=== PATIENT | female | born 1965 | race Caucasian/White ===

== ENCOUNTER 2020-04-16 10:52 | Outpatient (CLI) | payer OTHER, SELFPAY ==
--- NOTE | 2020-04-16 10:57 | MM_ITS ---
WS: [id number] SCREENING DIGITAL MAMMOGRAM WITH CAD HISTORY: SCREENING COMPARISON: 01/18/2017 and 10/06/2014 Bilateral CC and MLO views submitted. Computer aided detection analyzed. Breast composition: There are scattered areas of fibroglandular density. No suspicious masses, microc alcifications or architectural distortion. MM/[place] [id number] IMPRESSION: BI-RADS: 1-Negative FOLLOW UP: 1 Year Follow-up
== END 2020-04-16 10:53 | disposition home or self-care (01) ==
LOC: RADSHAW 10:55
PROVIDERS: PCP Family Medicine; Visit Provider Family Medicine
DX: Z12.31 Encounter for screening mammogram for malignant neoplasm of breast (principal)
CPT/HCPCS: 77067

== ENCOUNTER → 2020-05-06 14:36 | Outpatient (BNVA) | payer OTHER, SELFPAY | PROVIDERS: PCP Family Medicine; Visit Provider Surgery | DX: Z20.828 Contact with and (suspected) exposure to other viral communicable diseases (principal); Z12.11 Encounter for screening for malignant neoplasm of colon | CPT/HCPCS: 87635 ==

== ENCOUNTER 2020-05-12 08:13 | Day surgery (SDC) | payer OTHER, SELFPAY ==
[2020-05-08 13:48] VITALS: BMI 44.2
[2020-05-12 08:40] VITALS: BP 162/107; PULSE 72; RESP 16; TEMP 36.8; O2SAT 96
[2020-05-12] MEDS: sodium chloride 0.9% 1,000 ML 30 ML IV (08:58)
--- NOTE | 2020-05-12 09:38 | ANES.PREANE2 ---
Pre-Anesthetic Assessment Pre-Anesthetic Assessment: Height/Weight: Height 1.6 m Weight 113.398 kg Temp Pulse Resp BP Pulse Ox 98.3 F 72 16 162/107 96 05/12/20 08:40 05/12/20 08:40 05/12/20 08:40 05/12/20 08:40 05/12/20 08:40 Preop Diagnosis: screening colonoscopy Proposed Procedure: Operation Date: 05/12/20 09:30 Proposed Procedures p Colonoscopy 18099 Z12.11(Not Applicable) - Nick Vincent MD Was Beta Mellisa taken within 24 hours: N/A Last intake: Intake Last Liquid Date 05/11/20 Last Liquid Time 22:00 Last Solid Date 05/10/20 Last Solid Time 18:00 Social: Social History: No alcohol and No tobacco Exam: Pre-Anes Outpt Exam: alert, oriented x 3, clear to auscultation bilaterally and regular rate & rhythm Airway: Submandibular: WNL Cervical ROM: WNL Dentition: Full Metabolic: Metabolic: Morbid obesity and Thyroid Anesthetic Plan: ASA status: 2 Anesthesia: MAC Meds/Allergies Current Medications: Current Medications Generic Name Dose Route Start Last Admin Trade Name Freq PRN Reason Stop Dose Admin Sodium Chloride 1,000 mls @ 30 ml s/hr 05/12/20 08:45 05/12/20 08:58 Sodium Chloride 0.9% IV 05/13/20 08:44 30 mls/hr .Q24H MIGUE Administration PFSH Anesthesia Female Reproductive History: Date of last menstrual period: 11/13/14 Data Anesthesia Cardiac Studies: No Data to Display
--- NOTE | 2020-05-12 09:42 | W.PM.OPSFHP ---
Same Day Surgery H&P Indication for Procedure/HPI DATE OF PROCEDURE: May 12, 2020 CHIEF COMPLAINT/INDICATIONFOR SURGICAL PROCEDURE: Screening colonoscopy PREOP DIAGNOSIS: screening colonoscopy PLANNED PROCEDRUE: Operation Date: 05/12/20 09:30 Proposed Procedures p Colonoscopy 71183 Z12.11(Not Applicable) - Nick Vincent MD Medications/Allergies* Home Medications Medication Instructions Recorded Confirmed Type escitalopram oxalate 20 mg tablet 20 mg PO DAILY 04/13/20 05/12/20 History levothyroxine 200 mcg capsule 200 mcg PO DAILY 04/13/20 05/12/20 History methylphenidate HCl 10 mg tablet 10 mg PO BID 04/13/20 05/12/20 History Allergies/Adverse Reactions Allergy/AdvReac Type Severity Reaction Status Date / Time No Known Allergies Allergy Unverified 04/13/20 13:28 Current Medications: Generic Name Dose Route Start Last Admin Trade Name Freq PRN Reason Stop Dose Admin Sodium Chloride 1,000 mls @ 30 mls/hr 05/12/20 08:45 05/12/20 08:58 Sodium Chloride 0.9% IV 05/13/20 08:44 30 mls/hr .Q24H MIGUE Administration Pertinent Exam Findings alert, oriented x 3 and regular rate & rhythm Recommendations Surgery/Procedure today Coding Level of Care Code Acute Administrative Liaison for Rena Glover
[2020-05-12 10:33] VITALS: BP 118/90; PULSE 71; RESP 18; TEMP 36.2; O2SAT 96
[2020-05-12 10:45] VITALS: BP 142/78; PULSE 69; RESP 18; O2SAT 96
--- NOTE | 2020-05-12 15:34 | ANE.PACU2 ---
Inpatient post-anesthesia follow up: Airway intact: Yes Vital signs: Temperature 97.1 F Pulse Rate 69 Respiratory Rate 18 Blood Pressure 142/78 Pulse Oximetry 96 Oxygen Delivery Me thod Room Air Oxygen Flow Rate Fraction of Inspir ed Oxygen Hydration adequate: Yes Nausea and vomiting: No Pain level: 1 Mental status: Baseline
== END 2020-05-12 11:00 | disposition home or self-care (01) ==
PROVIDERS: PCP Family Medicine; Visit Provider Surgery
PROC: 0DJD8ZZ Inspection of Lower Intestinal Tract, Via Natural or Artificial Opening Endoscopic (ICD-10-PCS; CPT 45378; principal; 2020-05-12 09:30)
DX: Z12.11 Encounter for screening for malignant neoplasm of colon (principal); D12.2 Benign neoplasm of ascending colon; D12.3 Benign neoplasm of transverse colon; D12.8 Benign neoplasm of rectum
CPT/HCPCS: 12345; 45381; 45385; 88305; J2704; J7030

== ENCOUNTER → 2021-01-19 15:48 | Outpatient (BNVA) | payer OTHER, SELFPAY | PROVIDERS: PCP Family Medicine; Visit Provider Obstetrics & Gynecology | DX: Z12.4 Encounter for screening for malignant neoplasm of cervix (principal) | CPT/HCPCS: 83001; 88175 ==

== ENCOUNTER → 2022-03-10 14:44 | Outpatient (BNVA) | payer OTHER, SELFPAY | PROVIDERS: PCP Family Medicine; Visit Provider Family Medicine | DX: E03.9 Hypothyroidism, unspecified (principal) | CPT/HCPCS: 84443 ==

== ENCOUNTER → 2022-06-21 15:51 | Outpatient (BNVA) | payer OTHER, SELFPAY | PROVIDERS: PCP Family Medicine; Visit Provider Family Medicine | DX: E03.9 Hypothyroidism, unspecified (principal) | CPT/HCPCS: 84443 ==

== ENCOUNTER → 2023-10-19 11:19 | Outpatient (BNVA) | payer OTHER, SELFPAY | PROVIDERS: PCP Family Medicine; Visit Provider Nurse Practitioner Women's Health | DX: R23.2 Flushing (principal) | CPT/HCPCS: 82652; 82670; 83001; 83002 ==

== ENCOUNTER 2023-11-29 09:21 | Outpatient (CLI) | payer OTHER, SELFPAY ==
--- NOTE | 2023-11-29 09:22 | MM_ITS ---
WS: [id number] BILATERAL SCREENING DIGITAL TOMOSYNTHESIS MAMMOGRAM WITH CAD HISTORY: Z12.39 - Encounter for other screening for malignant neop... COMPARISON: 04/16/2020, 01/20/2017 Bilateral CC and MLO views with tomosynthesis and synthetic mammography submitted. Computer aided det ection analyzed. Breast composition: There are scattered areas of fibroglandular density. No suspicious masses, microc alcifications or architectural distortion. MM/[place] [id number] IMPRESSION: BI-RADS: 2-Benign FOLLOW UP: 1 Year Follow-up
== END 2023-11-29 09:22 | disposition home or self-care (01) ==
PROVIDERS: PCP Family Medicine; Visit Provider Nurse Practitioner Women's Health
DX: Z12.31 Encounter for screening mammogram for malignant neoplasm of breast (principal); R92.323 Mammographic fibroglandular density, bilateral breasts
CPT/HCPCS: 77063; 77067; 82652; 82670; 83001; 83002

== ENCOUNTER → 2023-12-19 14:10 | Outpatient (BNVA) | payer OTHER, SELFPAY | PROVIDERS: PCP Family Medicine; Visit Provider Nurse Practitioner Women's Health | DX: E03.9 Hypothyroidism, unspecified (principal) | CPT/HCPCS: 84439; 84443; 84481 ==

== ENCOUNTER → 2023-12-28 08:22 | Outpatient (BNVA) | payer OTHER, SELFPAY | PROVIDERS: PCP Family Medicine; Visit Provider Family Medicine | DX: Z01.419 Encounter for gynecological examination (general) (routine) without abnormal findings (principal); E03.9 Hypothyroidism, unspecified; F32.9 Major depressive disorder, single episode, unspecified | CPT/HCPCS: 80053; 80061; 85025 ==

== ENCOUNTER → 2024-10-23 13:46 | Outpatient (BNVA) | payer OTHER, SELFPAY | PROVIDERS: PCP Family Medicine; Visit Provider Nurse Practitioner Women's Health | DX: Z01.419 Encounter for gynecological examination (general) (routine) without abnormal findings (principal) | CPT/HCPCS: 82306; 84443; 87624 ==

== ENCOUNTER → 2024-11-05 12:46 | Outpatient (BNVA) | payer OTHER, SELFPAY | PROVIDERS: PCP Family Medicine; Visit Provider Nurse Practitioner Women's Health | DX: Z01.419 Encounter for gynecological examination (general) (routine) without abnormal findings (principal) | CPT/HCPCS: 76830 ==

== ENCOUNTER 2024-11-29 07:53 | Outpatient (CLI) | payer OTHER, SELFPAY ==
--- NOTE | 2024-11-29 08:00 | MM_ITS ---
WS: [id number] BILATERAL SCREENING DIGITAL TOMOSYNTHESIS MAMMOGRAM WITH CAD HISTORY: Z12.39 - Encounter for other screening for malignant neop... COMPARISON: 11/29/2023, 04/16/2020 Bilateral CC and MLO views with tomosynthesis and synthetic mammography submitted. Computer aided detection analyzed. Breast composition: There are scattered areas of fibroglandular density. No suspicious masses, microcalcifications or architectural distortion. MM/MM scr BI tomosynthesis [id number] IMPRESSION: BI-RADS: 1 - Negative. FOLLOW UP: 1 Year Follow-up
== END 2024-11-29 07:54 | disposition home or self-care (01) ==
LOC: RAD 07:54
PROVIDERS: PCP Family Medicine; Visit Provider Nurse Practitioner Women's Health
DX: Z12.31 Encounter for screening mammogram for malignant neoplasm of breast (principal); R92.323 Mammographic fibroglandular density, bilateral breasts
CPT/HCPCS: 77063; 77067

== ENCOUNTER 2024-12-06 13:18 | Outpatient (CLI) | payer OTHER, SELFPAY ==
--- NOTE | 2024-12-06 13:30 | US_ITS ---
WS: [id number] ULTRASOUND SOFT TISSUES RIGHT anterior shoulder. HISTORY: R SHOULDER SUBCUTANEOUS MASS COMPARISON: None available. TECHNIQUE: 2-D and color Doppler imaging is submitted. Ultrasound is directed along the anterior RIGHT shoulder in the area of the palpable abnormality. There is prominent soft tissue with echogenicity similar to the adjacent soft tissues. There is no encapsulation. Suspect this is probably a lipoma but the margins are difficult to identify. There is no in creased vascularity. US/US soft tissue/extremity [id number] IMPRESSION: Unencapsulated lipomatous soft tissues along the anterior RIGHT shoulder.
== END 2024-12-06 13:19 | disposition home or self-care (01) ==
LOC: RAD 13:19
PROVIDERS: PCP Family Medicine; Visit Provider Nurse Practitioner Family
DX: R22.31 Localized swelling, mass and lump, right upper limb (principal)
CPT/HCPCS: 76882

== ENCOUNTER 2024-12-17 07:50 | Day surgery (SDC) | payer OTHER, SELFPAY ==
[2024-12-17] VITALS (10 sets, daily range): BP systolic 139–156; BP diastolic 82–112; PULSE 66–75; RESP 16–18; TEMP 36.1–36.2; O2SAT 90–97; BMI 46.6
--- NOTE | 2024-12-17 00:55 | W.PM.OPSFHP ---
Same Day Surgery H&P Indication for Procedure/HPI DATE OF PROCEDURE: December 17, 2024 CHIEF COMPLAINT/INDICATIONFOR SURGICAL PROCEDURE: abnormal uterine bleeding PREOP DIAGNOSIS: abnormal uterine bleeding PLANNED PROCEDURE: Operation Date: 12/17/24 09:25 Proposed Procedures p Hysteroscopy w/ Endometrial Sampling 71383 12407, N93.9(Not Applicable) - Jaylen Suarez MD s POSSIBLE Endometrial Poylpectomy(Not Applicable) - Jaylen Suarez MD Medications/Allergies* Home Medications ?Medication ?Instructions ?Recorded ?Confirmed ?Type escitalopram oxalate 20 mg tablet 20 mg PO DAILY 12/16/24 12/16/24 History levothyroxine 200 mcg tablet 200 mcg PO DAILY 12/16/24 12/16/24 History meloxicam 15 mg tablet 15 mg PO DAILY 12/16/24 12/16/24 History Allergies/Adverse Reactions Allergy/AdvReac Type Severity Reaction Status Date / Time No Known Allergies Allergy Verified 11/14/24 08:32 Pertinent History/Comorbid Conditions* Medical History (Updated 11/06/24 @ 11:21 by Aure Orta NP) History of renal failure Depression Colon polyps Hypothyroidism Surgical History (Updated 05/12/20 @ 10:31 by Nick Vincent MD) Status post colonoscopy with polypectomy (05/12/20) Family History (Updated 01/19/21 @ 15:00 by Roxy Hernandez LPN) Diabetes Mother Grandmother Cancer Grandfather Hypertension Mother Denies family history of CAD (coronary artery disease) Clotting disorder Dementia Hyperlipidemia Psychiatric illness Chronic kidney disease (CKD) Suicide Anesthesia complication Bleeding disorder Lung disease Stroke Social History Smoking and tobacco/nicotine status: former use of tobacco/nicotine Pertinent Exam Findings alert, oriented x 3, clear to auscultation bilaterally and regular rate & rhythm Recommendations Surgery/Procedure today Coding Level of Care Code Acute Code for Chg Fwd
[2024-12-17 08:17] LABS: OR HCG Qualitative Urine Negative (Negative)
--- NOTE | 2024-12-17 08:50 | ANES.PREANE2 ---
Pre-Anesthetic Assessment Height/Weight: Height 1.57 m Weight 115.666 kg Temp Pulse Resp BP Pulse Ox O2 Del Method 97 F L 75 18 156/112 97 Room Air 12/17/24 08:01 12/17/24 08:01 12/17/24 08:01 12/17/24 08:30 12/17/24 08:01 12/17/24 08:01 Preop Diagnosis: abnormal uterine bleeding Operation Date: 12/17/24 09:25 Proposed Procedures p Hysteroscopy w/ Endometrial Sampling 19896 19975, N93.9(Not Applicable) - Jaylen Suarez MD s POSSIBLE Endometrial Poylpectomy(Not Applicable) - Jaylen Suarez MD Familial anesthetic complications: None Was Beta Mellisa taken within 24 hours: N/A Was Clonidine taken within 24 hours: N/A Last intake: Intake Last Liquid Date 12/16/24 Last Liquid Time 19:30 Last Solid Date 12/17/24 Last Solid Time 19:30 Social No alcohol and No tobacco Exam alert, oriented x 3, clear to auscultation bilaterally and regular rate & rhythm Airway Mallampati: Class III Dentition: full Metabolic Morbid Obesity and Thyroid Disease Anesthetic Plan ASA status: 3 Anesthesia: General Risk of > 500 ml blood loss (7ml/kg in children): No Medications/Allergies Home Medications ?Medication ?Instructions ?Recorded ?Confirmed ?Last Taken ?Type levothyroxine 50 mcg capsule 50 mcg PO DAILY #90 caps 08/29/23 12/17/24 12/16/24 Rx promethazine-DM 6.25 mg-15 mg/5 mL 5 ml PO Q6H PRN cough #118 mL 08/06/24 12/16/24 Unknown Rx oral syrup triamcinolone acetonide 0.5 % 1 applic topical BID #45 grams 08/15/24 12/16/24 Unknown Rx topical cream methylphenidate HCl 20 mg tablet 20 mg PO BID 1 month #60 tabs 11/12/24 12/16/24 12/16/24 Rx mupirocin 2 % topical ointment 1 applic topical BID #22 grams 11/14/24 12/16/24 Unknown Rx ([facility]) escitalopram oxalate 20 mg tablet 20 mg PO DAILY 12/16/24 12/16/24 12/16/24 History levothyroxine 200 mcg tablet 200 mcg PO DAILY 12/16/24 12/16/24 12/16/24 History meloxicam 15 mg tablet 15 mg PO DAILY 12/16/24 12/16/24 Unknown History Allergies Allergy/AdvReac Type Severity Reaction Status Date / Time No Known Allergies Allergy Verified 12/17/24 08:00 Current Medications Generic Name Dose Route Start Last Admin Trade Name Freq PRN Reason Stop Dose Admin Sodium Chloride 1,000 mls @ 30 mls/hr 12/17/24 08:00 12/17/24 08:21 Sodium Chloride 0.9% IV 12/18/24 07:59 30 mls/hr .Q24H MIGUE Administration PFSH Anesthesia Medical History History of renal failure Depression Colon polyps Hypothyroidism Surgical History Status post colonoscopy with polypectomy (05/12/20) Family History Mother Diabetes Hypertension Grandmother Diabetes Grandfather Cancer Denies family history of CAD (coronary artery disease) Clotting disorder Dementia Hyperlipidemia Psychiatric illness Chronic kidney disease (CKD) Suicide Anesthesia complication Bleeding disorder Lung disease Stroke Social History Smoking and tobacco/nicotine status: former use of tobacco/nicotine
--- NOTE | 2024-12-17 09:14 | W.PM.OPSUD ---
Surgery/Procedure H&P Update DATE OF PROCEDURE: December 17, 2024 DATE H&P PERFORMED: 12/17/24 H&P UPDATE INFORMATION: I have reviewed H&P completed within last 30 days, I have examined patient prior to procedure and No changes to prior documentation PREOP DIAGNOSIS: abnormal uterine bleeding PLANNED PROCEDURE: Operation Date: 12/17/24 09:25 Proposed Procedures p Hysteroscopy w/ Endometrial Sampling 35935 12548, N93.9(Not Applicable) - Jaylen Suarez MD s POSSIBLE Endometrial Poylpectomy(Not Applicable) - Jaylen Suarez MD
--- NOTE | 2024-12-17 11:30 | PM.OP ---
Operative Report Date of procedure: December 17, 2024 Pre-op diagnosis: abnormal uterine bleeding Post-op diagnosis: same Post-op findings: several endometrial polyps with varying sizes Minimal endometrial tissue Normal appearing cervix Procedure done: Hysteroscopy Endometrial sampling and polypectomy with Myosure Implants: none Specimens removed/disposition: endometrial tissue Surgeon: Jaylen Suarez MD Anesthesia: MAC Estimated blood loss (mL): 5 Complications: none Findings: see above Condition: stable Disposition: PACU Brief History: 59 y.o. with abnormal uterine bleeding Procedure: Patient was taken to the operating room. Anesthesia was induced. Patient was placed in dorsolithotomy position, prepped and draped for hysteroscopy. A bivalve speculum was placed in the vagina. The cervix and vagina were normal. The anterior lip of the cervix was grasped with a sharp-toothed tenaculum. The cervix was serially dilated with Hegar dilators. The uterus was sounded to 8 cm. A hysteroscope was placed into the endometrial cavity. There were several endometrial polyps with varying sizes. Minimal endometrial tissue was seen. The endocervical canal was normal. The endometrial cavity was otherwise normal. A Myosure device was then inserted and the endometrial polyps were removed and sent to pathology. Endometrial sampling was also done. The endometrial cavity was seen to be intact. The hysteroscope and Myosure were then removed. Endometrial tissue was sent to pathology. The sharp-toothed tenaculum was removed. There was no bleeding from the endometrial cavity or cervix. The patient was then placed supine and awakened and taken to the PACU. Postop condition: stable EBL: none Sponge and instruments counts were normal x 2 Complications: none
--- NOTE | 2024-12-17 11:55 | ANE.PACU2 ---
Inpatient post-anesthesia follow up: Airway intact: Yes Vital signs: Temperature 97.1 F Pulse Rate 66 Respiratory Rate 17 Blood Pressure 143/95 Pulse Oximetry 92 Oxygen Delivery Me thod Room Air Oxygen Flow Rate Fraction of Inspir ed Oxygen Hydration adequate: Yes Nausea and vomiting: No Pain level: 1 Mental status: Baseline
== END 2024-12-17 12:00 | disposition home or self-care (01) ==
PROVIDERS: Anesthesiology; PCP Family Medicine; Visit Provider Obstetrics & Gynecology
PROC: 0UJD8ZZ Inspection of Uterus and Cervix, Via Natural or Artificial Opening Endoscopic (ICD-10-PCS; CPT 58555; principal; 2024-12-17 09:15)
DX: N93.9 Abnormal uterine and vaginal bleeding, unspecified (principal); E03.9 Hypothyroidism, unspecified; F32.A Depression, unspecified; Z87.891 Personal history of nicotine dependence; N19 Unspecified kidney failure; E66.2 Morbid (severe) obesity with alveolar hypoventilation; Z68.42 Body mass index [BMI] 45.0-49.9, adult
CPT/HCPCS: 58558; 81025; 88305; J1100; J1200; J2250; J2405; J2704; J3010; J7030; J9999

== ENCOUNTER → 2025-01-15 08:14 | Outpatient (BNVA) | payer OTHER, SELFPAY | PROVIDERS: PCP Family Medicine; Visit Provider Family Medicine | DX: E03.9 Hypothyroidism, unspecified (principal) | CPT/HCPCS: 80053; 80061; 83036 ==

== ENCOUNTER → 2025-02-11 10:15 | Outpatient (BNVA) | payer OTHER, SELFPAY | PROVIDERS: PCP Family Medicine; Visit Provider Family Medicine | DX: F32.9 Major depressive disorder, single episode, unspecified (principal); E03.9 Hypothyroidism, unspecified | CPT/HCPCS: 84439; 84443 ==